=== PATIENT | male | born 1965 | race Two or more races ===

== ENCOUNTER 2019-09-08 13:10 | Emergency (ER) | payer SELFPAY ==
[~2019-09-08] VITALS: Ht 172.7 cm; Wt 130.4 kg
[~2019-09-08 13:10] MED LIST: CIPR500T94 PO; Folic Acid PO; HYDR-3164 PO; LACT1CAP19 PO; MAG30ORA2 PO; MULT1TAB90 PO; PANT40TA77 PO; SPIR25TA PO; TAMS0.4C97 PO; THIA100T22 PO
[2019-09-08 13:47] LABS: BASO % 1 % (0-3); EOS % 1 % (0-3); HEMOGLOBIN 11.4 g/dL (13.0-17.5); LYMPH # 1.6 x10^3/uL (1.0-4.8); LYMPH % 41 % (24-48); MEAN CORPUSCULAR HEMOGLOBIN 31 pg (25-35); MEAN CORPUSCULAR HGB CONC 33 g/dL (31-37); MEAN CORPUSCULAR VOLUME 94 fL (79-100); MONO # 0.5 x10^3/uL (0.0-1.1); MONO % 13 % (0-9); NEUT # 1.8 x10^3/uL (1.8-7.7); NEUT % 45 % (31-73); PLATELET COUNT 110 x10^3/uL (140-400); RED BLOOD COUNT 3.71 x10^6/uL (4.30-5.70); RED CELL DISTRIBUTION WIDTH 21.2 % (11.5-14.5); WHITE BLOOD COUNT 3.9 x10^3/uL (4.0-11.0)
[2019-09-08 13:52] LABS: CALCIUM 7.9 mg/dL (8.5-10.1); CREATININE 1.1 mg/dL (0.7-1.3); GFR 69.5
[2019-09-08 13:58] LABS: ALBUMIN/GLOBULIN RATIO 0.3 (1.0-1.7); TOTAL BILIRUBIN 3.4 mg/dL (0.2-1.0); TOTAL PROTEIN 8.3 g/dL (6.4-8.2)
[2019-09-08 15:22] LABS: PROTHROMBIN TIME PATIENT 27.1 SEC (11.7-14.0)
[2019-09-08 15:34] LABS: PLT ESTIMATE ADEQUATE (ADEQUATE)
[2019-09-08 15:35] LABS: ANISOCYTOSIS SLIGHT
[2019-09-08] MEDS ORDERED: IOHEXOL 300 MG/ML 100ML VIAL. IV ONE (16:00)
[2019-09-08] MEDS ORDERED: CONTRAST GIVEN. MC PRN (16:15)
[2019-09-08 16:30] VITALS: BP 98/64
--- NOTE | 2019-09-08 16:42 | RAD ---
CT SCAN OF THE ABDOMEN AND PELVIS WITH IV CONTRAST. History: Reason: ABDOMINAL PAIN, SWELLING / Spl. Instructions: INJ 75ML OMNI 300 / History: Comparison:August 18, 2019. Procedure: Contiguous axial images of the abdomen and pelvis were performed after the administration of 75 cc of Isovue 370 IV contrast. Oral contrast: No. Findings: There is moderate ascites seen previously and unchanged. There is venous varices around the distal esophagus and proximal stomach. There is recannulization of the umbilical vein. There is fat within the inguinal canal hernias. The appendix is not well seen but appears normal. The gallbladder is normal. Liver: Small but homogeneous Spleen: Unremarkable Pancreas: Unremarkable Adrenal Glands: Unremarkable Kidneys: Unremarkable There is no mass or lymphadenopathy. There is no free air. The urinary bladder is collapsed. Impression: 1. Moderate ascites unchanged. 2. Cirrhotic liver and portal hypertension with esophageal and stomach venous varices and recanalization of the umbilical vein. 3. No new findings. End impression PQRS Compliance Statement: One or more of the following individualized dose reduction techniques were utilized for this examination: 1. Automated exposure control 2. Adjustment of the mA and/or kV according to patient size 3. Use of iterative reconstruction technique Electronically signed by: Isidoro White III, MD (09/08/2019 4:39 PM) [id number]
--- NOTE | 2019-09-08 18:01 | PHYS DOC ---
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 [] Eyes: Denies change in visual acuity. [] HENT: Denies nasal congestion or sore throat. [] Respiratory: Denies cough or shortness of breath. [] Cardiovascular: Denies chest pain or edema. [] GI: Denies abdominal pain, nausea, vomiting, bloody stools or diarrhea. [] : Denies dysuria. [] Musculoskeletal: Denies back pain or joint pain. [] Integument: Denies rash. [] Neurologic: Denies headache, focal weakness or sensory changes. [] Endocrine: Denies polyuria or polydipsia. [] Lymphatic: Denies swollen glands. [] Psychiatric: Denies depression or anxiety. [] Heart Score: Risk Factors: Risk Factors: DM, Current or recent (<one month) smoker, HTN, HLP, family history of CAD, obesity. Risk Scores: Score 0 - 3: 2.5% MACE over next 6 weeks - Discharge Home Score 4 - 6: 20.3% MACE over next 6 weeks - Admit for Clinical Observation Score 7 - 10: 72.7% MACE over next 6 weeks - Early Invasive Strategies Current Medications: Current Medications Medications (Trade) Dose Ordered Sig/Bart Start Time Stop Time Status Last Admin Dose Admin Info (CONTRAST GIVEN -- Rx MONITORING) 1 each PRN DAILY PRN 09/08/19 16:15 09/10/19 16:14 Iohexol (Omnipaque 300 Mg/ml) 75 ml 1X ONCE 09/08/19 16:00 09/08/19 16:01 DC 09/08/19 16:15 75 ML Allergies: Allergies: Allergies Coded Allergies Type Severity Reaction Last Updated Verified No Known Drug Allergies 04/01/13 No Physical Exam: PE: Constitutional: Well developed, well nourished, no acute distress, non-toxic appearance. [] HENT: Normocephalic, atraumatic, bilateral external ears normal, oropharynx moist, no oral exudates, nose normal. [] Eyes: PERRLA, EOMI, conjunctiva normal, no discharge. [] Neck: Normal range of motion, no tenderness, supple, no stridor. [] Cardiovascular:Heart rate regular rhythm, no murmur [] Lungs & Thorax: Bilateral breath sounds clear to auscultation [] Abdomen: Bowel sounds normal, soft, no tenderness, no masses, no pulsatile masses. [] Skin: Warm, dry, no erythema, no rash. [] Back: No tenderness, no CVA tenderness. [] Extremities: No tenderness, no cyanosis, no clubbing, ROM intact, no edema. [] Neurologic: Alert and oriented X 3, normal motor function, normal sensory function, no focal deficits noted. [] Psychologic: Affect normal, judgement normal, mood normal. [] Current Patient Data: Labs: Laboratory Tests Test 09/08/19 13:25 09/08/19 13:28 White Blood Count 3.9 x10^3/uL (4.0-11.0) L Red Blood Count 3.71 x10^6/uL (4.30-5.70) L Hemoglobin 11.4 g/dL (13.0-17.5) L Hematocrit 35.0 % (39.0-53.0) L Mean Corpuscular Volume 94 fL (79-100) Mean Corpuscular Hemoglobin 31 pg (25-35) Mean Corpuscular Hemoglobin Concent 33 g/dL (31-37) Red Cell Distribution Width 21.2 % (11.5-14.5) H Platelet Count 110 x10^3/uL (140-400) L Neutrophils (%) (Auto) 45 % (31-73) Lymphocytes (%) (Auto) 41 % (24-48) Monocytes (%) (Auto) 13 % (0-9) H Eosinophils (%) (Auto) 1 % (0-3) Basophils (%) (Auto) 1 % (0-3) Neutrophils # (Auto) 1.8 x10^3/uL (1.8-7.7) Lymphocytes # (Auto) 1.6 x10^3/uL (1.0-4.8) Monocytes # (Auto) 0.5 x10^3/uL (0.0-1.1) Eosinophils # (Auto) 0.0 x10^3/uL (0.0-0.7) Basophils # (Auto) 0.0 x10^3/uL (0.0-0.2) Platelet Estimate Adequate (ADEQUATE) Anisocytosis Slight Sodium Level 130 mmol/L (136-145) L Potassium Level 4.0 mmol/L (3.5-5.1) Chloride Level 101 mmol/L (98-107) Carbon Dioxide Level 21 mmol/L (21-32) Anion Gap 8 (6-14) Blood Urea Nitrogen 3 mg/dL (8-26) L Creatinine 1.1 mg/dL (0.7-1.3) Estimated GFR (Cockcroft-Gault) 69.5 BUN/Creatinine Ratio 3 (6-20) L Glucose Level 99 mg/dL (70-99) Calcium Level 7.9 mg/dL (8.5-10.1) L Total Bilirubin 3.4 mg/dL (0.2-1.0) H Aspartate Amino Transferase (AST) 48 U/L (15-37) H Alanine Aminotransferase (ALT) 14 U/L (16-63) L Alkaline Phosphatase 143 U/L (46-116) H Total Protein 8.3 g/dL (6.4-8.2) H Albumin 2.0 g/dL (3.4-5.0) L Albumin/Globulin Ratio 0.3 (1.0-1.7) L Lipase 81 U/L (73-393) Prothrombin Time 27.1 SEC (11.7-14.0) H Prothrombin Time INR 2.5 (0.8-1.1) H Activated Partial Thromboplast Time 49 SEC (24-38) H Magnesium Level 1.9 mg/dL (1.8-2.4) Laboratory Tests 09/08/19 13:25 Laboratory Tests 09/08/19 13:25 Vital Signs: Vital Signs Date Time Temp Pulse Resp B/P (MAP) Pulse Ox O2 Delivery O2 Flow Rate FiO2 09/08/19 16:30 78 18 98/64 (75) 97 Room Air 09/08/19 13:34 98.0 98.0 EKG: EKG: [] Radiology/Procedures: Radiology/Procedures: [][facility] [address] [place] [address] IMAGING REPORT Signed PATIENT: GERMAN TOWNSEND ACCOUNT: [id number] : 1965 LOCATION: ER AGE: 53 SEX: M EXAM STATUS: REG ER ORD. PHYSICIAN: HEATH SMITH DO REASON: ABDOMINAL PAIN, SWELLING PROCEDURE: CT ABD PELV W/ IV CONTRST ONLY CT SCAN OF THE ABDOMEN AND PELVIS WITH IV CONTRAST. History: Reason: ABDOMINAL PAIN, SWELLING / Spl. Instructions: INJ 75ML OMNI 300 / History: Comparison:August 18, 2019. Procedure: Contiguous axial images of the abdomen and pelvis were performed after the administration of 75 cc of Isovue 370 IV contrast. Oral contrast: No. Findings: There is moderate ascites seen previously and unchanged. There is venous varices around the distal esophagus and proximal stomach. There is recannulization of the umbilical vein. There is fat within the inguinal canal hernias. The appendix is not well seen but appears normal. The gallbladder is normal. Liver: Small but homogeneous Spleen: Unremarkable Pancreas: Unremarkable Adrenal Glands: Unremarkable Kidneys: Unremarkable There is no mass or lymphadenopathy. There is no free air. The urinary bladder is collapsed. Impression: 1. Moderate ascites unchanged. 2. Cirrhotic liver and portal hypertension with esophageal and stomach venous varices and recanalization of the umbilical vein. 3. No new findings. End impression PQRS Compliance Statement: One or more of the following individualized dose reduction techniques were utilized for this examination: 1. Automated exposure control 2. Adjustment of the mA and/or kV according to patient size 3. Use of iterative reconstruction technique Electronically signed by: Dimitri Leon III, MD (09/08/2019 4:39 PM) [id number] DICTATED and SIGNED BY: DIMITRI LEON III, MD DATE: 09/08/19 1639 Course & Med Decision Making: Course & Med Decision Making Pertinent Labs and Imaging studies reviewed. (See chart for details) [] Dragon Disclaimer: Dragon Disclaimer: This electronic medical record was generated, in whole or in part, using a voice recognition dictation system. Departure Departure Impression: Primary Impression: Ascites Additional Impression: Cirrhosis Disposition: HOME, SELF-CARE Condition: STABLE Referrals: NO PCP (PCP) ALIZE VEE MD please call this GI doctor for follow up next week Patient Instructions: Ascites, Cirrhosis Additional Instructions: Thank you for visiting our Emergency Department. We appreciate you trusting us with your care. If any additional problems come up don't hesitate to return to visit us. Please follow up with your primary care provider so they can plan additional care if needed and know about the problem that you had. If symptoms worsen come back to the Emergency Department. Any concerning symptoms that start such as chest pain, shortness of air, weakness or numbness on one side of the body, running high fevers or any other concerning symptoms return to the ER. HEATH SMITH DO Sep 08, 2019 18:01
[2019-09-08 19:09] LABS: BILIRUBIN,URINE SMALL (NEG); CLARITY,URINE CLEAR; COLOR,URINE ORANGE; NITRITE,URINE POSITIVE (NEG); PH,URINE 5.5 (<5.0-8.0); PROTEIN,URINE 30 mg/dL (NEG-TRACE)
[2019-09-08 19:29] LABS: BACTERIA,URINE 0 /HPF (0-FEW); RBC,URINE 0 /HPF (0-2); SQUAMOUS EPITHELIAL CELL,UR MOD /LPF; WBC,URINE OCC /HPF (0-4)
== END 2019-09-08 18:58 | disposition home or self-care (01) ==
LOC: ER 13:10
DX: K70.31 Alcoholic cirrhosis of liver with ascites (principal); R10.9 Unspecified abdominal pain; I10 Essential (primary) hypertension; F10.10 Alcohol abuse, uncomplicated; D68.9 Coagulation defect, unspecified; Z98.890 Other specified postprocedural states; Z87.891 Personal history of nicotine dependence
CPT/HCPCS: 36415; 74177; 80053; 81001; 83690; 83735; 85025; 85610; 85730; 87086; 99285; Q9967